=== PATIENT | male | born 1990 | race Caucasian/White ===

== ENCOUNTER 2023-11-26 23:04 | Emergency (ER) | payer BC, OTHER ==
[2023-11-26 23:11] VITALS: BP 136/90; PULSE 60; RESP 16; TEMP 97.6; BMI 26.9
[2023-11-26] MEDS: ONDANSETRON 4 MG/2 ML VIAL IVPUSH ONE (23:25)
[2023-11-26] MEDS: SODIUM CHLORIDE 1,000 ML IV STA (23:25)
[2023-11-26] MEDS ORDERED: ONDANSETRON 4 MG/2 ML VIAL ONE (23:39)
[2023-11-27] MEDS ORDERED: diazePAM CARPU-JECT 10 MG/2 ML DISP.SYRIN ONE (00:32)
[2023-11-27] MEDS: diazePAM CARPU-JECT 10 MG/2 ML DISP.SYRIN IVPUSH ONE (00:38)
[2023-11-27] MEDS ORDERED: KETOROLAC TROMETHAMINE 30 MG/1 ML VIAL ONE (01:32)
[2023-11-27] MEDS ORDERED: MECLIZINE HCL 25 MG TABLET (FP) ONE (01:32)
[2023-11-27] MEDS: KETOROLAC TROMETHAMINE 30 MG/1 ML VIAL IVPUSH ONE (01:42)
[2023-11-27] MEDS: MECLIZINE HCL 25 MG TABLET (FP) PO ONE (01:42)
== END 2023-11-27 06:27 | disposition home or self-care (01) ==
LOC: FER 23:04
PROC: 3E030GC Introduction of Other Therapeutic Substance into Peripheral Vein, Open Approach (ICD-10-PCS; 2023-11-26)
PROC: 3E0337Z Introduction of Electrolytic and Water Balance Substance into Peripheral Vein, Percutaneous Approach (ICD-10-PCS; 2023-11-26)
PROC: 3E030GC Introduction of Other Therapeutic Substance into Peripheral Vein, Open Approach (ICD-10-PCS; principal; 2023-11-27)
PROC: 3E0303Z Introduction of Anti-inflammatory into Peripheral Vein, Open Approach (ICD-10-PCS; 2023-11-27)
DX: H83.02 Labyrinthitis, left ear (principal); R11.0 Nausea; R42 Dizziness and giddiness
CPT/HCPCS: 70450-TC; 99284-25